=== PATIENT | male | born 1980 | race Caucasian/White ===

== ENCOUNTER 2016-10-02 11:57 | Emergency (ER) | payer OTHER ==
[~2016-10-02] VITALS: Ht 182.9 cm; Wt 100.9 kg
[2016-10-02 11:58] VITALS: BP 151/97; PULSE 71; RESP 20; O2SAT 96
--- NOTE | 2016-10-02 12:13 | ED.REPORT ---
HPI-Chest Pain Under 40 Date of Service Oct 02, 2016 ED Provider: Umesh Negrete DO Pt is a 36 y/o relatively healthy male presenting to the ED c/o substernal CP onset prior to arrival. The pt came out of [facility] after eating pizza and experienced pinching pain under the left breast area which developed into fast palpitations and substernal chest pressure. He c/o associated SOB. He denies cough, nasal congestion, fever, chills, nausea, vomiting, diarrhea. Nursing Notes Stated Complaint: CHEST PAIN Chief Complaint: Chest Pain Nursing Notes Reviewed: Yes Allergies: Coded Allergies: Benzodiazepines (Verified Allergy, Unknown, 09/20/15) diazepam (Verified Allergy, Unknown, 09/20/15) haloperidol (Verified Allergy, Unknown, 09/20/15) metoclopramide (Verified Allergy, Unknown, 09/20/15) Uncoded Allergies: ANTIPSYCHOTICS (Allergy, Unknown, 07/23/09) Scheduled PRN Naproxen (Naproxen) 500 Mg Tab 500 MG PO BID PRN PRN For Pain General Time Seen by MD: 12:08 Chief Complaint Chest pain Hx Obtained From: Patient Arrived By: Walk-in Sudden in Onset?: Yes Onset Occurred: Just prior to arrival Symptom Duration: Since onset Location: : Chest left: Substernal Quality: Painful, Pressure Radiation: : Does not radiate Severity: Current: Moderate Severity: Maximum: Moderate Similar Sx Previous: No Past Medical History Past Medical History Developmental Delay Renal Failure, Kidney Transplant h/o UTI's in past Seizures - medicated Past Surgical History Kidney Transplant, March 2004 Urethral strictures and dilation Bladder stimulator Family History Noncontributory Smoking History Never Smoker Social History Alcohol Use: Denies alcohol use Drug Use: Denies drug use Other Social History: Good social support, Local resident Ambulatory Status Independent Review of Systems Constitutional: Denies: Chills, Fever Respiratory: Reports: Shortness of breath, Denies: Non-productive cough Cardiovascular: Reports: Chest pain, Palpitations GI: Denies: Abdominal pain, Diarrhea, Nausea, Vomiting Skin: Denies Diaphoresis Complete sys rev & neg: except as marked. Physical Exam Initial Vital Signs Vital Signs (First) Date Time Temp Pulse Resp B/P Pulse Ox O2 Delivery O2 Flow Rate FiO2 10/02/16 11:58 36.3 71 20 151/97 96 Initial VS: Reviewed, Vital signs normal Head / Eyes: Atraumatic, Normocephalic, PERRL ENT: Mucous membranes moist, Conjunctiva normal, No scleral icterus Neck: Supple, Full range of motion Extremities: Vascular intact, Neuro intact, No swelling, No tenderness Skin: Warm, Dry, No cyanosis Neurologic: Alert, Oriented, Nonfocal Psychiatric: Mood/affect normal, Behavior normal, Normal thought content General/Constitutional: Awake, Alert, No acute distress, Well appearing, Cooperative, Not toxic appearing Respiratory / Chest: Atraumatic, Breath sounds NL, Breath sounds = bilat, No respiratory distress, No rales, No rhonchi, No wheezing, No retractions, No stridor, No chest wall deformity, No crepitus Reproducible left chest wall tenderness Abdomen: Atraumatic, Soft, No guarding, No rebound Tenderness/Guarding/Rebound: Positive: Tender LUQ... (Mild) Interpretation & Diagnostics Lab Results Interpretation Result Diagram: 10/02/16 1208 10/02/16 1208 Test 10/02/16 12:08 10/02/16 12:27 10/02/16 14:24 White Blood Count 7.4th/mm3 (3.8-10.1) Red Blood Count 5.66mil/mm3 (4.40-5.80) Hemoglobin 16.1g/dL (13.8-17.2) Hematocrit 46.8% (41.0-50.0) Mean Corpuscular Volume 82.7fL (81-100) Mean Corpuscular Hemoglobin 28.4pg (27.0-35.0) Mean Corpuscular Hemoglobin Concent 34.4% (32.0-37.0) Red Cell Distribution Width 13.2% (12.3-15.4) Platelet Count 304bil/L (150-400) Neutrophils (%) (Auto) 69.3% (40-74) Lymphocytes (%) (Auto) 24.2% (14-46) Monocytes (%) (Auto) 4.5% (4-12) Eosinophils (%) (Auto) 1.5% (0-5) Basophils (%) (Auto) 0.4% (0-3) Sodium Level 141mEq/L (134-144) Potassium Level 4.5mEq/L (3.5-5.2) Chloride Level 101mEq/L (97-108) Carbon Dioxide Level 26mmol/L (18-29) Blood Urea Nitrogen 9mg/dL (6-20) Creatinine 1.30mg/dL (0.76-1.27) Estimat Glomerular Filtration Rate 67mL/min (>59) Glucose Level 120mg/dL (60-99) Calcium Level 9.3mg/dL (8.5-10.1) Magnesium Level 1.8mg/dL (1.6-2.6) Total Bilirubin 0.7mg/dL (0.0-1.2) Aspartate Amino Transf (AST/SGOT) 15U/L (0-50) Alanine Aminotransferase (ALT/SGPT) 12U/L (0-44) Alkaline Phosphatase 149U/L (25-150) Total Protein 8.0g/dL (6.4-8.4) Albumin 4.6g/dL (3.4-5.0) Lipase 18U/L (13-60) Troponin T < 0.010ug/L (0.0-0.011) ECG Interpretation ECG Interpretation: Sinus rhythm rate 74 LVH Time: 12:18 Interpreted by: ED physician Normal ECG Interpretation: No acute ischemic changes, No change from prior ECGs (09/30/07) X-Ray Chest Interpretation Chest Xray Interpretation: IMPRESSION: Mild left basilar atelectasis. Dictated by: Mickey Rodriguez M.D. on 10/02/2016 at 12:27 Approved by: Mickey Rodriguez M.D. on 10/02/2016 at 12:27 View: Portable, 1 view Interpretation / Wet Read by: Interpret - Radiologist Re-Eval/Medical Decision Med Decision/Clinical Course Focal chest wall pain not consistent with acute coronary syndrome. Patient has serially negative EKGs and troponins and will be discharged with naproxen. Re-Evaluation/Progress : Time of Eval: 14:56 Re-Evaluation/Progress Note: Pt rechecked. Informed pt of plan for treatment. Pt understands and agrees with plan for treatment. F/U and RTER warnings given. All questions addressed. Will be dc/ed pending normal serial trop. Counseled Regarding: Diagnosis, Lab results, Need for follow-up, When/why to return to ED Discharge & Departure Primary Impression: Non-cardiac chest pain Disposition: Home Discharge Condition All VS Reviewed: Yes Condition: Stable Patient Instructions: Chest Pain (ED) Additional Instructions: No dangerous cause for your chest pain was identified. Your labs including the lab which corresponds with heart damage was normal. Your chest x-ray and EKG were also normal. You should follow-up with your primary care doctor next week for further personal evaluation. Return to the emergency department if you experience an episode of increased chest pain, shortness of breath, profuse sweating, nausea and vomiting, or for other concerning signs or symptoms. Referrals: Sarthka Mendoza MD (PCP) Scribe Attestation Portions of this note were transcribed by Syd Moody. I, Dr. Negrete personally performed the history, physical exam and medical decision-making; I reviewed and confirmed the accuracy of the information in the transcribed note. Signed by Rio Quiñonez, 10/02/16 - [id number] copies to: Sarthak Mendoza MD, Timothy S DO Oct 02, 2016 12:13 SYD MOODY Oct 02, 2016 12:15
[2016-10-02 12:16] LABS: BASOPHILS % (AUTO) 0.4 % (0-3); EOSINOPHILS % (AUTO) 1.5 % (0-5); MONOCYTES % (AUTO) 4.5 % (4-12); Mean Corpuscular Hemoglobin 28.4 pg (27.0-35.0); Mean Corpuscular Volume 82.7 fL (81-100); NEUTROPHILS % (AUTO) 69.3 % (40-74); Platelet Count 304 bil/L (150-400)
--- NOTE | 2016-10-02 12:29 | DRSVH ---
PROCEDURE: X-RAY CHEST ONE VIEW, PORTABLE ([id number]) INDICATIONS: CP TECHNIQUE: One view of the chest was acquired. COMPARISON: 09/30/2007 FINDINGS: Surgical changes and devices: None. Lungs and pleura: No pleural effusions or pneumothorax. No pulmonary infiltrates. There is slight el evation of the left hemidiaphragm and minimal compressive atelectasis at the left base, possibly from splinting. Mediastinum: Mediastinal contours appear normal. Heart size is normal. Bones and chest wall: No suspicious bony lesions. Overlying soft tissues appear unremarkable. IMPRESSION: Mild left basilar atelectasis. Dictated by: Mickey Rodriguez M.D. on 10/02/2016 at 12:27 Approved by: Mickey Rodriguez M.D. on 10/02/2016 at 12:27
[2016-10-02] MEDS ORDERED: Ondansetron 2 mg/mL 2 mL Inj IVPUSH PRN (12:30)
[2016-10-02 12:52] LABS: Magnesium 1.8 mg/dL (1.6-2.6); TROPONIN T < 0.010 ug/L (0.0-0.011)
[2016-10-02] MEDS ORDERED: Ketorolac 15 mg/mL Inj IVPUSH ONE (13:55)
[2016-10-02] MEDS ORDERED: NPR500T PO (14:48)
[2016-10-02 15:25] VITALS: BP 136/87; PULSE 72; RESP 16; O2SAT 98
== END 2016-10-02 15:26 | disposition home or self-care (01) ==
LOC: SED 11:57
DX: R07.89 Other chest pain (principal); Z88.5 Allergy status to narcotic agent; Z88.8 Allergy status to other drugs, medicaments and biological substances
CPT/HCPCS: 36415; 71010; 80053; 83690; 83735; 84484; 85025; 93005; 96374; 96375; 96376; 99285; J2270; J2405